=== PATIENT | male | born 1980 | race Two or more races ===

== ENCOUNTER 2016-12-25 08:00 | Emergency (ER) | payer MEDICAID, OTHER, SELFPAY ==
[~2016-12-25] VITALS: Ht 177.8 cm; Wt 159.1 kg
[2016-12-25] MEDS ORDERED: LISI-538 (08:21)
[2016-12-25] MEDS ORDERED: ATEN50TA2 (08:21)
[2016-12-25] MEDS ORDERED: RANI150T (08:21)
[2016-12-25] MEDS ORDERED: FLUO20CA19 (08:21)
[2016-12-25] MEDS ORDERED: LORA10TA2 (08:21)
[2016-12-25] MEDS ORDERED: FURO20TA2 (08:21)
[2016-12-25 08:24] VITALS: BP 129/63
[2016-12-25] MEDS ORDERED: CYCL10TA PO (08:54)
[2016-12-25] MEDS ORDERED: IBUP-1022 PO (08:54)
== END 2016-12-25 09:06 | disposition home or self-care (01) ==
LOC: M ED 08:00
DX: S33.5XXA Sprain of ligaments of lumbar spine, initial encounter (principal); S39.012A Strain of muscle, fascia and tendon of lower back, initial encounter; X50.9XXA Other and unspecified overexertion or strenuous movements or postures, initial encounter; Y92.009 Unspecified place in unspecified non-institutional (private) residence as the place of occurrence of the external cause; Y93.89 Activity, other specified; Y99.8 Other external cause status; I11.9 Hypertensive heart disease without heart failure; K21.9 Gastro-esophageal reflux disease without esophagitis; F17.200 Nicotine dependence, unspecified, uncomplicated; Z79.899 Other long term (current) drug therapy

== ENCOUNTER → 2017-08-23 | Outpatient (CLI) | payer OTHER | LOC: M LRY 11:52 | DX: M25.552 Pain in left hip (principal) | CPT/HCPCS: 73502 ==

== ENCOUNTER 2017-10-29 15:07 | Emergency (ER) | payer OTHER ==
[2017-10-29] MEDS: NS 1,000 ML IV (16:15)
[2017-10-29 16:50] LABS: VENOUS BASE EXCESS 1.6 (-2.0-2.0); VENOUS HCO3 25.9 MEQ/L (23.0-27.0); VENOUS O2 SATURATION 97.5 % (60.0-80.0); VENOUS PARTIAL PRESSURE CO2 39.7 mmHg (38.0-50.0); VENOUS PARTIAL PRESSURE O2 92.1 mmHg (30.0-50.0); VENOUS PH 7.432 UNITS (7.330-7.430); VENOUS STANDARD HCO3 25.9 MEQ/L; VENOUS TOTAL CO2 27.1 MEQ/L (24.0-28.0)
[2017-10-29 16:53] LABS: BASO # 0.1 10^3/uL (0.0-0.2); BASO % 0.6 % (0.0-1.0); EOS # 0.3 10^3/uL (0.0-0.50); EOS % 2.7 % (0.0-3.0); HEMATOCRIT 42.2 % (42.0-52.0); HEMOGLOBIN 14.5 g/dl (13.5-17.5); IMMATURE GRANULOCYTE % 0.4 % (0-3.0); LYMPH # 3.1 10^3/uL (1.5-4.5); LYMPH % 30.4 % (24.0-44.0); MEAN CORPUSCULAR HEMOGLOBIN 28.4 pg (27.0-33.0); MEAN CORPUSCULAR HGB CONC 34.4 g/dl (32.0-36.5); MEAN CORPUSCULAR VOLUME 82.7 fl (80.0-96.0); MONO # 0.6 10^3/uL (0.0-0.8); NEUTROPHILS # 6.1 10^3/uL (1.8-7.7); NEUTROPHILS % 59.9 % (36.0-66.0); PLATELET COUNT, AUTOMATED 338 10^3/uL (150-450); RED CELL DISTRIBUTION WIDTH 12.7 % (11.5-14.5); WHITE BLOOD COUNT 10.2 10^3/uL (4.0-10.0)
[2017-10-29 16:57] LABS: AMORPHOUS SEDIMENT RFX SMALL (NEGATIVE); CALCIUM OXALATE CRYSTALS RFX MODERATE; KETONE, URINE AUTO RFX TRACE mg/dL (NEGATIVE); LEUKOCYTE ESTERASE UR AUTO RFX NEGATIVE (NEGATIVE); MUCUS, URINE RFX SMALL (NEGATIVE); NITRITE, URINE AUTO RFX NEGATIVE (NEGATIVE); RBC, URINE AUTO RFX 2 /HPF (0-3); SPECIFIC GRAVITY UR AUTO RFX 1.036 (1.002-1.035); SQUAM EPITHELIAL CELL UR AURFX 1 /HPF (0-6); WBC, URINE AUTO RFX 0 /HPF (0-3)
[2017-10-29 17:21] LABS: ALBUMIN 3.4 GM/DL (3.2-5.2); ALBUMIN/GLOBULIN RATIO 0.81 (1.00-1.93); ALKALINE PHOSPHATASE 184 U/L (45-117); ALT/SGPT 36 U/L (12-78); ANION GAP 8 MEQ/L (8-16); AST/SGOT 18 U/L (7-37); BILIRUBIN,DIRECT 0.1 MG/DL (0.0-0.2); BILIRUBIN,TOTAL 0.4 MG/DL (0.2-1.0); BLOOD UREA NITROGEN 15 MG/DL (7-18); CALCIUM LEVEL 8.3 MG/DL (8.5-10.1); CARBON DIOXIDE LEVEL 26 MEQ/L (21-32); CHLORIDE LEVEL 103 MEQ/L (98-107); CK-MB VALUE MASS 1.2 NG/ML (<3.6); CPK CREATINE PHOSPHOKINASE 102 U/L (39-308); ESTIMATED AVERAGE GLUCOSE 206 MG/DL (60-110); GLOMERULAR FILTRATION RATE > 60.0 (>60); GLUCOSE, FASTING 252 MG/DL (70-100); HEMOGLOBIN A1c 8.8 %; LIPASE 86 U/L (73-393); MB/CK RELATIVE INDEX 1.17 (< OR =4); PHOSPHORUS LEVEL 3.1 MG/DL (2.5-4.9); POTASSIUM SERUM 3.6 MEQ/L (3.5-5.1); SODIUM LEVEL 137 MEQ/L (136-145); TOTAL PROTEIN 7.6 GM/DL (6.4-8.2); TROPONIN I < 0.02 NG/ML (< 0.10)
[2017-10-29 17:23] LABS: ACETONE/KETONE 0.99 MG/DL (<2.81)
[2017-10-29 17:37] LABS: OSMOLALITY SERUM 295 MOSM/KG (275-295)
[2017-10-30 12:11] LABS: BEDSIDE GLUCOSE 302 MG/DL (70-105)
== END 2017-10-29 18:03 | disposition home or self-care (01) ==
LOC: M ED 15:07
DX: I10 Essential (primary) hypertension (principal); E11.65 Type 2 diabetes mellitus with hyperglycemia; K21.9 Gastro-esophageal reflux disease without esophagitis; R00.0 Tachycardia, unspecified; Z79.899 Other long term (current) drug therapy
CPT/HCPCS: 82550

== ENCOUNTER → 2018-01-30 | Outpatient (REF) | payer OTHER ==
[2018-01-30 14:13] LABS: ESTIMATED AVERAGE GLUCOSE 157 MG/DL (60-110); HEMOGLOBIN A1c 7.1 %
== END ==
LOC: M SFHCPLAZ 11:55
DX: E11.65 Type 2 diabetes mellitus with hyperglycemia (principal)

== ENCOUNTER → 2018-03-05 | Outpatient (CLI) | payer OTHER | LOC: M WUC 16:44 | DX: M25.532 Pain in left wrist (principal) | CPT/HCPCS: 73110 ==

== ENCOUNTER → 2018-09-08 | Outpatient (REF) | payer OTHER ==
[~2018-09-08] MED LIST: ATEN50TA2; CYCL10TA PO; FLUO20CA19; FURO20TA2; IBUP-1022 PO; LISI-538; LORA-243; METF500T13 PO; METO1TAB87 PO; RANI150T
== END ==
LOC: M SFHCLERA 11:10
PROVIDERS: ATTEND Nurse Practitioner Family
DX: R53.81 Other malaise (principal)

== ENCOUNTER 2019-11-04 18:13 | Emergency (ER) | payer OTHER, SELFPAY ==
[~2019-11-04] VITALS: Ht 177.8 cm; Wt 145.4 kg
[~2019-11-04 18:13] MED LIST changes: +CYCL-707 PO; -CYCL10TA PO; -FLUO20CA19; +FLUO20CA22
[2019-11-04] MEDS ORDERED: LISI10TA4 (18:21)
[2019-11-04] MEDS ORDERED: TYLENOL (18:21)
[2019-11-04] MEDS ORDERED: IBUPROFEN 600MG TAB PO ONE (19:00)
[2019-11-04] MEDS ORDERED: NS 1,000 ML IV ONE (19:00)
[2019-11-04 20:15] LABS: HEMATOCRIT 46.3 % (42.0-52.0); HEMOGLOBIN 14.9 g/dl (13.5-17.5); MEAN CORPUSCULAR HEMOGLOBIN 27.9 pg (27.0-33.0); MEAN CORPUSCULAR HGB CONC 32.2 g/dl (32.0-36.5); MEAN CORPUSCULAR VOLUME 86.7 fl (80.0-96.0); PLATELET COUNT, AUTOMATED 365 10^3/uL (150-450); RED BLOOD COUNT 5.34 10^6/uL (4.30-6.10); WHITE BLOOD COUNT 6.5 10^3/uL (4.0-10.0)
[2019-11-04] MEDS ORDERED: ACETAMINOPHEN TAB 650MG DOSE (2X325MG) PO ONE (20:30)
[2019-11-04 20:35] LABS: ATYPICAL LYMPH 4 % (0-5); EOSINOPHILS 1 % (0-3); LYMPHOCYTES 34 % (16-44); MONOCYTES 14 % (0-5); NEUTROPHILS 46 % (28-66)
[2019-11-04 20:36] LABS: ANISOCYTOSIS 1+; HYPOCHROMASIA 1+; PLATELET ESTIMATE NORMAL (NORMAL)
[2019-11-04 20:37] LABS: PLATELET CLUMPS SMALL AMT
[2019-11-04 20:42] LABS: ALBUMIN 3.7 GM/DL (3.2-5.2); ALT/SGPT 46 U/L (12-78); BILIRUBIN,DIRECT 0.2 MG/DL (0.0-0.2); BILIRUBIN,TOTAL 0.3 MG/DL (0.2-1.0); BLOOD UREA NITROGEN 11 MG/DL (7-18); CALCIUM LEVEL 8.8 MG/DL (8.5-10.1); CARBON DIOXIDE LEVEL 29 MEQ/L (21-32); CHLORIDE LEVEL 101 MEQ/L (98-107); CK-MB VALUE MASS < 1.0 NG/ML (<3.6); CPK CREATINE PHOSPHOKINASE 144 U/L (39-308); CREATININE FOR GFR 0.92 MG/DL (0.70-1.30); GLOMERULAR FILTRATION RATE > 60.0 (>60); GLUCOSE, FASTING 170 MG/DL (70-100); MB/CK RELATIVE INDEX 0.69 (< OR =4); NT-PRO BNP 6 PG/ML (<125); POTASSIUM SERUM 3.9 MEQ/L (3.5-5.1); SODIUM LEVEL 137 MEQ/L (136-145); TOTAL PROTEIN 8.1 GM/DL (6.4-8.2); TROPONIN I < 0.02 NG/ML (< 0.10)
[2019-11-04 22:00] VITALS: BP 146/65
--- NOTE | 2019-12-02 11:32 | REP ---
Clinical: Chest pain . Comparison: None Findings: The mediastinum and cardiac silhouette are stable and within normal limits for portable technique. The lung biggs are clear without acute consolidation, effusion, or pneumothorax. Skeletal structures are intact. Impression: No acute cardiopulmonary process appreciated. Electronically Signed by Dwight Acuña MD 11/05/2019 12:40 A
== END 2019-11-04 22:23 | disposition home or self-care (01) ==
LOC: M ED 18:13
DX: R50.9 Fever, unspecified (principal); B34.9 Viral infection, unspecified; E11.9 Type 2 diabetes mellitus without complications; I10 Essential (primary) hypertension; K21.9 Gastro-esophageal reflux disease without esophagitis; G47.33 Obstructive sleep apnea (adult) (pediatric); Z99.89 Dependence on other enabling machines and devices; Z79.899 Other long term (current) drug therapy; Z79.84 Long term (current) use of oral hypoglycemic drugs; F17.210 Nicotine dependence, cigarettes, uncomplicated
CPT/HCPCS: 71045; 80048; 80076; 82550; 82553; 83880; 84484; 85025; 87040; 87077; 87186; 87486; 87581; 87633; 87798; 93041; 94760; 96360; 99284; C9803; U0003

== ENCOUNTER → 2022-02-21 | Outpatient (REF) | payer OTHER ==
[~2022-02-21] MED LIST changes: -LISI-538; +LISI10TA22; +LISI20TA33; +TYLENOL
[2022-02-21 16:36] LABS: HEMATOCRIT 47.2 % (42.0-52.0); MEAN CORPUSCULAR HEMOGLOBIN 28.8 pg (27.0-33.0); MEAN CORPUSCULAR HGB CONC 33.9 g/dl (32.0-36.5); MEAN CORPUSCULAR VOLUME 84.9 fl (80.0-96.0); PLATELET COUNT, AUTOMATED 400 10^3/uL (150-450); RED BLOOD COUNT 5.56 10^6/uL (4.30-6.10); WHITE BLOOD COUNT 9.9 10^3/uL (4.0-10.0)
[2022-02-21 17:35] LABS: ALBUMIN 3.7 GM/DL (3.2-5.2); ALT/SGPT 27 U/L (12-78); BILIRUBIN,TOTAL 0.3 MG/DL (0.2-1.0); BLOOD UREA NITROGEN 20 MG/DL (7-18); CALCIUM LEVEL 9.6 MG/DL (8.5-10.1); CARBON DIOXIDE LEVEL 27 MEQ/L (21-32); CHLORIDE LEVEL 99 MEQ/L (98-107); CREATININE FOR GFR 0.94 MG/DL (0.70-1.30); GLOMERULAR FILTRATION RATE > 60.0 (>60); GLUCOSE, FASTING 324 MG/DL (70-100); POTASSIUM SERUM 4.2 MEQ/L (3.5-5.1); SODIUM LEVEL 133 MEQ/L (136-145); TOTAL PROTEIN 7.9 GM/DL (6.4-8.2)
[2022-02-21 19:13] LABS: HEMOGLOBIN A1c 11.2 %
== END ==
LOC: M LABWUC 16:19
PROVIDERS: ATTEND Student in an Organized Health Care Education/Training Program
DX: R73.9 Hyperglycemia, unspecified (principal)